=== PATIENT | male | born 1985 | race Two or more races ===

== ENCOUNTER 2023-11-06 09:30 | Emergency (ER) | payer MEDICAID ==
[~2023-11-06] VITALS: Ht 165.1 cm; Wt 98.9 kg
[2023-11-06 11:08] LABS: BASOPHILS # (AUTO) 0.1 K/UL (0.0-0.2); BASOPHILS % (AUTO) 0.9 % (0.0-2.0); EOSINOPHILS # (AUTO) 0.3 K/uL (0.0-0.7); EOSINOPHILS % (AUTO) 2.8 % (0.0-7.0); HEMATOCRIT 45.6 % (36.7-47.1); LYMPHOCYTES # (AUTO) 2.8 K/uL (0.8-4.8); LYMPHOCYTES % (AUTO) 29.6 % (20.5-51.5); MEAN CORPUSCULAR HEMOGLOBIN 31.4 uug (23.8-33.4); MEAN CORPUSCULAR HGB CONC 35 g/dL (32.5-36.3); MEAN CORPUSCULAR VOLUME 89.3 fL (73.0-96.2); MONOCYTES # (AUTO) 0.8 K/uL (0.1-1.30); MONOCYTES % (AUTO) 8.5 % (0.0-11.0); NEUTROPHILS # (AUTO) 5.5 K/uL (1.8-8.9); NEUTROPHILS % (AUTO) 58.2 % (38.5-71.5); PLATELET COUNT (AUTO) 197 K/uL (152-348); RED CELL DISTRIBUTION WIDTH 13.4 % (12.1-16.2); WHITE BLOOD COUNT (AUTO) 9.5 K/uL (3.6-10.2)
[2023-11-06 11:11] LABS: *BILIRUBIN,URIN NEGATIVE (NEGATIVE); *BLOOD, URINE NEGATIVE (NEGATIVE); *CLARITY,URINE CLEAR (CLEAR); *COLOR,URINE YELLOW (YELLOW); *KETONES,URINE 2+ (NEGATIVE); *PROTEIN,URINE NEGATIVE (NEGATIVE); *UROBILINOGEN,URINE 0.2 E.U./dl (NORMAL); LEUKOCYTE ESTERASE ,URINE NEGATIVE (NEGATIVE); NITRITE, URINE NEGATIVE (NEGATIVE); PH,URINE 5.5 (5.0-8.0)
[2023-11-06 11:12] LABS: UGLUCOSE 3+ (NEGATIVE)
[2023-11-06 11:16] LABS: CALCIUM 8.9 mg/dL (8.5-10.1); CARBON DIOXIDE 27 mmol/L (21-32); CHLORIDE 101 mmol/L (98-107); CREATININE 0.8 mg/dL (0.6-1.3); GLUCOSE 373 mg/dL (74-106); POTASSIUM 3.9 mmol/L (3.5-5.1); SODIUM SERUM 135 mmol/L (136-145); UREA NITROGEN, BLOOD 13 mg/dL (7-18)
[2023-11-06 11:25] LABS: ALANINE AMINOTRANSFERASE 62 U/L (16-63); ALBUMIN 3.5 g/dL (3.4-5.0); ALKALINE PHOSPHATASE 141 U/L (50-136); ASPARTATE AMINOTRANSFERASE 27 U/L (15-37); BILIRUBIN,DIRECT 0.2 mg/dL (0.0-0.2); BILIRUBIN,TOTAL 1.8 mg/dL (0.2-1.0); TOTAL PROTEIN, SERUM 7.3 g/dL (6.4-8.2)
[2023-11-06 11:40] LABS: BACTERIA,URINE NONE SEEN /HPF (NONE SEEN); RBC,URINE 0-3 /HPF (0-3); WBC,URINE 0-3 /HPF (0-3)
[2023-11-06] MEDS ORDERED: METF-440 PO (12:37)
[2023-11-06] MEDS ORDERED: NAPR-1164 PO (12:37)
[2023-11-06] MEDS ORDERED: CLOT30CR24 TP (12:37)
[2023-11-06] MEDS ORDERED: CEPH500C2 PO (12:37)
[2023-11-06 13:50] VITALS: BP 134/71; TEMP 98.2; O2SAT 98
== END 2023-11-06 13:51 | disposition home or self-care (01) ==
LOC: ER 09:30
DX: B37.42 Candidal balanitis (principal); E11.65 Type 2 diabetes mellitus with hyperglycemia; M54.12 Radiculopathy, cervical region; Z79.899 Other long term (current) drug therapy
CPT/HCPCS: 36415; 70450; 71045; 72125; 84484; 85025; 85730; 93005; A4606; A4663

== ENCOUNTER 2024-01-27 07:11 | Emergency (ER) | payer MEDICAID ==
[~2024-01-27] VITALS: Ht 165.1 cm; Wt 97.5 kg
[~2024-01-27 07:11] MED LIST: CEPH500C2 PO; CLOT30CR24 TP; METF-440 PO; NAPR-1164 PO
[2024-01-27] MEDS ORDERED: IBUPROFEN 800 MG TABLET ONE (08:08)
[2024-01-27] MEDS: IBUPROFEN 800 MG TABLET PO ONE (08:12)
[2024-01-27] MEDS ORDERED: ACET-2030 PO (10:14)
[2024-01-27] MEDS ORDERED: BENZ-13 PO (10:14)
[2024-01-27 10:25] VITALS: BP 115/70; TEMP 97.9; O2SAT 99
== END 2024-01-27 10:26 | disposition home or self-care (01) ==
LOC: ER 07:11
DX: J06.9 Acute upper respiratory infection, unspecified (principal); R51.9 Headache, unspecified; Z79.899 Other long term (current) drug therapy; Z20.822 Contact with and (suspected) exposure to COVID-19
CPT/HCPCS: 86403; 87070; A4606; A4663